=== PATIENT | female | born 1990 | race Caucasian/White ===

== ENCOUNTER 2017-09-21 23:29 | Emergency (ER) | payer OTHER ==
[~2017-09-21] VITALS: Ht 167.6 cm; Wt 61.2 kg
[2017-09-21 23:32] VITALS: Ht 167.6 cm; Wt 61.2 kg
[2017-09-22 00:52] VITALS: BP 140/96
== END 2017-09-21 23:50 | disposition home or self-care (01) ==
LOC: ED 23:29
DX: J02.9 Acute pharyngitis, unspecified (principal); Z88.8 Allergy status to other drugs, medicaments and biological substances

== ENCOUNTER 2017-11-29 06:24 | Inpatient (IN) | payer OTHER ==
[~2017-11-29] VITALS: Ht 167.6 cm; Wt 65.3 kg
[2017-11-29 06:30] VITALS: Ht 167.6 cm; Wt 65.3 kg
[2017-11-29 06:58] LABS: BASOPHIL % 0.1 % (0-2); PLATELET COUNT 240 x10^3mcL (130-400); RED CELL DISTRIBUTION WIDTH 13.3 % (11.5-14.5)
[2017-11-29 07:26] LABS: POTASSIUM SERUM 3.7 mmol/L (3.5-5.1)
[2017-11-29 07:29] LABS: CALCIUM 8.5 mg/dL (8.5-10.1); CARBON DIOXIDE 24.9 mmol/L (21-32); CHLORIDE SERUM 102 mmol/L (98-107); CREATININE SERUM 0.6 mg/dL (0.6-1.0); GFR1 > 60 mL/min; GLUCOSE SERUM 93 mg/dL (74-106); SODIUM SERUM 138 mmol/L (136-145)
[2017-11-29 07:33] LABS: ALBUMIN 4.1 g/dL (3.4-5.0); ALKALINE PHOSPHATASE 76 U/L (46-116); ALT/SGPT 20 U/L (14-59); AST/SGOT 21 U/L (15-37); BILIRUBIN TOTAL 0.67 mg/dL (0.20-1.00); LIPASE 100 IU/L (73-393); TOTAL PROTEIN, SERUM 7.1 g/dL (6.4-8.2)
[2017-11-29 09:01] LABS: MAGNESIUM 1.6 mg/dL (1.8-2.4); PHOSPHOROUS 2.1 mg/dL (2.5-4.9)
[2017-11-29 09:04] LABS: T3 TOTAL 0.98 ng/mL
[2017-11-29 09:14] LABS: FREE T4 0.93 ng/dL (0.76-1.46); FREE THYROXINE INDEX 2.4 ug/dL (1.4-4.5); T4(THYROXINE) 7.3 ug/dL (4.7-13.3)
[2017-11-29 11:47] VITALS: BP 94/34
[2017-11-29 12:15] VITALS: BP 96/45
[2017-11-29 16:36] VITALS: BP 90/35
[2017-11-29 18:36] LABS: AMPHETAMINE QUAL UR NONE DETECTED
[2017-11-29 21:18] VITALS: BP 97/49
[2017-11-29 21:40] VITALS: BP 97/49
[2017-11-30 05:20] VITALS: BP 94/45
[2017-11-30 07:21] LABS: BASOPHIL % 0.2 % (0-2); PLATELET COUNT 188 x10^3mcL (130-400); RED CELL DISTRIBUTION WIDTH 13.5 % (11.5-14.5)
[2017-11-30 07:50] LABS: CALCIUM 7.1 mg/dL (8.5-10.1); CARBON DIOXIDE 25.1 mmol/L (21-32); CHLORIDE SERUM 108 mmol/L (98-107); CREATININE SERUM 0.7 mg/dL (0.6-1.0); GFR1 > 60 mL/min; GLUCOSE SERUM 92 mg/dL (74-106); HDL CHOLESTEROL 53 mg/dL (40-60); MAGNESIUM 2.2 mg/dL (1.8-2.4); PHOSPHOROUS 2.3 mg/dL (2.5-4.9); POTASSIUM SERUM 3.6 mmol/L (3.5-5.1); SODIUM SERUM 140 mmol/L (136-145); TRIGLYCERIDES 46 mg/dL (<150)
[2017-11-30 07:51] LABS: CHOLESTEROL 128 mg/dL (<200); CHOLESTEROL/HDL RATIO 2.4
[2017-11-30 10:10] VITALS: BP 113/53
[2017-11-30 14:09] VITALS: BP 109/46
[2017-11-30 17:42] VITALS: BP 101/61
[2017-11-30 21:18] VITALS: BP 115/55
[2017-12-01 05:07] VITALS: BP 103/53
[2017-12-01 07:35] LABS: CALCIUM 7.5 mg/dL (8.5-10.1); CARBON DIOXIDE 26.8 mmol/L (21-32); CHLORIDE SERUM 109 mmol/L (98-107); CREATININE SERUM 0.7 mg/dL (0.6-1.0); GFR1 > 60 mL/min; GLUCOSE SERUM 87 mg/dL (74-106); MAGNESIUM 1.9 mg/dL (1.8-2.4); PHOSPHOROUS 3.5 mg/dL (2.5-4.9); POTASSIUM SERUM 3.6 mmol/L (3.5-5.1); SODIUM SERUM 143 mmol/L (136-145)
[2017-12-01 07:36] LABS: BASOPHIL % 0.7 % (0-2); PLATELET COUNT 206 x10^3mcL (130-400); RED CELL DISTRIBUTION WIDTH 13.8 % (11.5-14.5)
[2017-12-01 09:00] VITALS: BP 115/67
[2017-12-01] MEDS ORDERED: ACETAMINOPHEN-H1 TA1 PO (10:22)
[2017-12-01] MEDS ORDERED: LAC PO (10:23)
[2017-12-01] MEDS ORDERED: COL100 PO (10:23)
[2017-12-01] MEDS ORDERED: AUG500 PO (10:24)
== END 2017-12-01 12:52 | disposition left against medical advice (07) | DRG 225 ==
LOC: ED 06:24 → DU 07:50 → MU 11-30 06:57
PROVIDERS: Emergency Medicine; Family Medicine; Student in an Organized Health Care Education/Training Program; Surgery
PROC: 0DTJ4ZZ Resection of Appendix, Percutaneous Endoscopic Approach (ICD-10-PCS; principal; 2017-11-29 09:30)
DX: K35.80 Unspecified acute appendicitis (principal); E87.8 Other disorders of electrolyte and fluid balance, not elsewhere classified; E83.42 Hypomagnesemia; E83.39 Other disorders of phosphorus metabolism; D64.9 Anemia, unspecified; D72.829 Elevated white blood cell count, unspecified; N20.0 Calculus of kidney; Z88.8 Allergy status to other drugs, medicaments and biological substances; Z88.2 Allergy status to sulfonamides
CPT/HCPCS: 83880; 84439; 94150; J0330; J0696; J1885; J2175; J2250; J2405; J2543; J2550; J2704; J2710; J3010; J3475; J3490; J7030; J7120